=== PATIENT | male | born 1960 | race Caucasian/White ===

== ENCOUNTER 2016-08-23 19:00 | Emergency (ER) | payer OTHER ==
[~2016-08-23 19:00] MED LIST: LORTAB 10/500 T1 TAB
== END 2016-08-23 19:18 | disposition home or self-care (01) ==
LOC: CED 19:00
DX: L03.115 Cellulitis of right lower limb (principal); F31.9 Bipolar disorder, unspecified; F17.210 Nicotine dependence, cigarettes, uncomplicated
CPT/HCPCS: 96372; 99283

== ENCOUNTER 2016-12-11 15:54 | Emergency (ER) | payer OTHER ==
[~2016-12-11] VITALS: Ht 185.4 cm; Wt 81.6 kg
--- NOTE | ~2016-12-11 | CR230 ---
[facility] A Service of [facility] & [facility] RADIOLOGY TEXT RESULTS PATIENT: KRISTINE ELENA LOCATION: CFTX : 56 UNIT #: [id number] AGE: [address]: Ashley Dinh SEX: M ORDER DR: [id number] [facility] [address]. [place], [place] [address] [id number] MR#: [id number] Acc #: [id number] NAME: KRISTINE ELENA. : 1960 SEX: M STUDY DATE/TIME: 12/11/2016 16:16 UNIT: [facility] ROOM: STUDY DESCRIPTION: CR Shoulder Min 2 View Rt Attending Physician: Ashley Dinh P.A.-C. Ordering Physician: Ashley Dinh P.A.-C. Primary Care Physician: Primary Care Physician No MEDICAL IMAGING REPORT This report is preliminary unless electronic signature is present EXAM Right shoulder, 12/11/2016 HISTORY 56-year-old male with right shoulder pain and decreased range of motion for 2 days. COMPARISON None. FINDINGS Three views of the right shoulder demonstrate no acute fracture or dislocation. Acromioclavicular joint appears within normal limits. Soft tissues are unremarkable. IMPRESSION Unremarkable right shoulder. Dictated by... Timothy Robertson M.D. THIS IS AN ELECTRONICALLY VERIFIED REPORT Timothy Robertson M.D. at 12/12/2016 9:00 AM CHUCHO/trina TD: 12/12/2016 03:55 JOB #: [id number] MEDICAL IMAGING REPORT Page 1 of 1 COPY
== END 2016-12-11 17:18 | disposition home or self-care (01) ==
LOC: CFTX 15:54 → CED 15:54 → CFTX 16:18
DX: M25.511 Pain in right shoulder (principal); F17.210 Nicotine dependence, cigarettes, uncomplicated; F31.9 Bipolar disorder, unspecified
CPT/HCPCS: 73030; 99283

== ENCOUNTER → 2016-12-25 | Outpatient (CLI) | payer OTHER ==
--- NOTE | ~2016-12-25 | MR165 ---
[facility] A Service of [facility] & [facility] RADIOLOGY TEXT RESULTS PATIENT: KRISTINE ELENA LOCATION: CMRI : 56 UNIT #: [id number] AGE: [address]: Mathew Clayton MD SEX: M ORDER DR: [id number] [place] [id number] [facility]. [place], [place] [address] [id number] MR#: [id number] #: [id number] NAME: KRISTINE ELENA : 1960 SEX: M STUDY DATE/TIME: 12/25/2016 7:01 UNIT: [facility] ROOM: STUDY DESCRIPTION: MR Shoulder Wo Contrast Rt Attending Physician: Mathew Clayton M.D. Referring Physician: Mathew Clayton M.D. Ordering Physician: Mathew Clayton M.D. Primary Care Physician: Generic Doctor Not In System MRI CENTER REPORT This report is preliminary unless electronic signature is present. EXAM MRI of the right shoulder. HISTORY 56-year-old male complains of right shoulder pain for 3 weeks. Works [employer], may have injured at work. COMPARISON Right shoulder films, 12/11/2016. FINDINGS Multiplanar, multiecho imaging performed of the right shoulder utilizing a high field magnet dedicated protocol. Minimal AC joint arthropathy with predominately superiorly directed capsular hypertrophy. No significant periarticular inflammation. Marrow signal in the proximal humerus and glenoid appears normal. Mild thickening of the coracoacromial ligament. The rotator cuff appears intact without tendinopathy or tear. No muscle atrophy or edema. Superior labrum biceps anchor and long tendon of the biceps appears intact. Anterior and posterior labrum unremarkable. The deltoid and extraarticular soft tissues appear normal. IMPRESSION Minimal AC joint arthropathy without active inflammation as well as a mildly thickened coracoacromial ligament with narrowing of the subacromial outlet which could contribute to impingement but no evidence of active rotator cuff tendinopathy and no evidence of rotator cuff tear. Dictated by.Lindsay Andujar M.D. THIS IS AN ELECTRONICALLY VERIFIED REPORT [facility] A Service of [facility] RADIOLOGY TEXT RESULTS PATIENT: KRISTINE ELENA LOCATION: [facility] : 56 UNIT #: [id number] AGE: [address]: Mathew Clayton MD SEX: M ORDER DR: Ariana Andujar M.D. at 12/26/2016 5:18 PM Ximena TD: 12/25/2016 17:36 JOB #: [id number] MRI CENTER REPORT Page 1 of 1 COPY
== END | disposition home or self-care (01) ==
LOC: CMRI 06:21
DX: M25.511 Pain in right shoulder (principal)
CPT/HCPCS: 73221